=== PATIENT | female | born 1940 | race Caucasian/White ===

== ENCOUNTER 2019-06-22 06:22 | Day surgery (SDC) | payer MEDICARE, BC ==
[~2019-06-22] VITALS: Ht 162.6 cm; Wt 53.1 kg
[2019-06-22] VITALS (10 sets, daily range): BP systolic 104–144; BP diastolic 54–86
[2019-06-22] MEDS ORDERED: cefazolin/dext.iso 2gm/100ml 100 ML IV ONE (06:50)
[2019-06-22] MEDS ORDERED: normal saline 1000ml IV bolus over 1 hour IV ONE (06:50)
[2019-06-22] MEDS ORDERED: MAGN500C16 PO (06:59)
[2019-06-22] MEDS ORDERED: LEVO50TA PO (06:59)
[2019-06-22] MEDS ORDERED: OSC500T PO (06:59)
[2019-06-22] MEDS ORDERED: Progesterone VG (06:59)
[2019-06-22] MEDS ORDERED: CHOL500061 PO (06:59)
[2019-06-22 07:30] LABS: EOSINOPHILS # (AUTO) 0.1 X10'3 (0-0.9); EOSINOPHILS % (AUTO) 1.5 % (0-6); HEMATOCRIT 35.8 % (35.0-45.0); HEMOGLOBIN 12.6 g/dl (12.0-16.0); LYMPHOCYTES % (AUTO) 25.7 % (21-51); MEAN CORPUSCULAR HEMOGLOBIN 31.3 PG (27.0-31.0); MEAN CORPUSCULAR HGB CONC 35.1 g/dL (33.0-36.5); MEAN CORPUSCULAR VOLUME 89.4 FL (78-98); MEAN PLATELET VOLUME 7.7 FL (7.4-10.4); MONOCYTES # (AUTO) 0.3 X10'3 (0-0.9); MONOCYTES % (AUTO) 8.5 % (2-12); NEUTROPHILS # (AUTO) 2.5 X10'3 (1.8-7.7); NEUTROPHILS % (AUTO) 63.3 % (42-75); PLATELET COUNT 220 X10'3 (140-440); RED BLOOD COUNT 4.01 X10'6 (4.20-5.60); RED CELL DISTRIBUTION WIDTH 14.1 % (11.5-14.5)
[2019-06-22 07:40] LABS: ALBUMIN 3.7 G/DL (3.4-5.0); ANION GAP 7 (8-16); BLOOD UREA NITROGEN 12 MG/DL (7-18); BUN/CREATININE RATIO 14.8 (6.6-38.0); CALCIUM 8.3 MG/DL (8.5-10.1); CHLORIDE 109 MMOL/L (99-107); CREATININE 0.81 MG/DL (0.40-0.90); GLUCOSE 99 MG/DL (70-104); POTASSIUM 3.7 MMOL/L (3.5-5.1); SODIUM 144 MMOL/L (135-145); TOTAL CARBON DIOXIDE 27.8 MMOL/L (24-32); eGFR 68 ML/MIN
[2019-06-22] MEDS ORDERED: diphenhydrAMINE 50 mg/ml inj ONE (08:26)
[2019-06-22] MEDS ORDERED: iohexol 300 MG/1 ML 50ml polymer ONE (08:26)
[2019-06-22] MEDS ORDERED: fentaNYL/PF 50MCG/1 ML 2ML syringe ONE ×2 (08:26→09:39)
[2019-06-22] MEDS ORDERED: LIDOcaine 1%/PF 5ML 10 MG/ML VIAL ONE (08:26)
[2019-06-22] MEDS ORDERED: midazolam 2 mg/2 ml injection ONE ×2 (08:26→09:39)
[2019-06-22] MEDS ORDERED: normal saline 1000ml 1,000 ML IV SCH (10:19)
[2019-06-22] MEDS ORDERED: HYDROcodone/acetaminophen 5mg/325mg tablet PO PRN (10:20)
== END 2019-06-22 14:30 | disposition home or self-care (01) ==
LOC: SSTAY O 06:22
PROVIDERS: ATTEND Radiology Vascular & Interventional Radiology
DX: M80.08XA Age-related osteoporosis with current pathological fracture, vertebra(e), initial encounter for fracture (principal); Z98.890 Other specified postprocedural states; Z79.899 Other long term (current) drug therapy
CPT/HCPCS: 22513; 36415; 80048; 85025; 99152; 99153; C1713; J1200; J2250; J3010; J7030; Q9967